=== PATIENT | male | born 1950 | race Caucasian/White ===

== ENCOUNTER 2019-01-15 07:17 | Emergency (ER) | payer MEDICARE, OTHER ==
[~2019-01-15] VITALS: Ht 180.3 cm; Wt 82.6 kg
[2019-01-15 07:25] VITALS: BP 163/65
[2019-01-15] MEDS ORDERED: fentaNYL PF VIAL 100 MCG/2 ML VIAL IV ONE (08:00)
[2019-01-15] MEDS ORDERED: ONDANSETRON PF 4 MG/2 ML VIAL. IV ONE (08:00)
--- NOTE | 2019-01-15 08:33 | PHYS DOC ---
Past Medical History Past Medical History: High Cholesterol Past Surgical History: Other Additional Past Surgical Histo: L4-L5,L5-S1 surgery,bilat knee scope Alcohol Use: Occasionally Drug Use: None Adult General Chief Complaint Chief Complaint: LOWER BACK PAIN OR INJURY [facility] HPI Patient is a 68 year old male who presents with complaining of right hip pain. Patient tearing of sudden onset of right hip pain since 2200 last night as a constant pain that gradually getting worse. Patient complaining of increasing of the pain with walking and bearing weight. Patient denies focal neuro deficit, in jury, fever and chills, urinary and bowel incontinence, abdominal pain, history of the same pain. Patient rated his pain 10 over 10 and states he took Tylenol without improvement of his pain. Review of Systems Review of Systems Constitutional: Denies fever or chills [] Eyes: Denies change in visual acuity, redness, or eye pain [] HENT: Denies nasal congestion or sore throat [] Respiratory: Denies cough or shortness of breath [] Cardiovascular: No additional information not addressed in HPI [] GI: Denies abdominal pain, nausea, vomiting, bloody stools or diarrhea [] : Denies dysuria or hematuria [] Musculoskeletal: Denies back pain, reports joint pain [] Integument: Denies rash or skin lesions [] Neurologic: Denies headache, focal weakness or sensory changes [] Endocrine: Denies polyuria or polydipsia [] All other systems were reviewed and found to be within normal limits, except as documented in this note. Current Medications Current Medications Current Medications Medications (Trade) Dose Ordered Sig/Ismael Start Time Stop Time Status Last Admin Dose Admin Fentanyl Citrate (Fentanyl 2ml Vial) 50 mcg 1X ONCE 01/15/19 08:00 01/15/19 08:01 DC 01/15/19 08:31 50 MCG Ondansetron HCl (Zofran) 4 mg 1X ONCE 01/15/19 08:00 01/15/19 08:01 DC 01/15/19 08:31 4 MG Allergies Allergies Allergies Coded Allergies Type Severity Reaction Last Updated Verified No Known Drug Allergies 01/15/19 No Physical Exam Physical Exam Constitutional: Well developed, well nourished, mild distress, non-toxic appearance. [] HENT: Normocephalic, atraumatic. Eyes: PERRLA, EOMI, conjunctiva normal, no discharge. [] Neck: Normal range of motion, no tenderness, supple, no stridor. [] Cardiovascular:Heart rate regular rhythm, no murmur [] Lungs & Thorax: Bilateral breath sounds clear to auscultation [] Abdomen: Bowel sounds normal, soft, no tenderness, no masses, no pulsatile masses. [] Skin: Warm, dry, no erythema, no rash. [] Back: No tenderness, no CVA tenderness. [] Extremities: Right hip without deformity or sign of injury, painful range of motion without neurovascular deficit. Neurologic: Alert and oriented X 3, no focal deficits noted. [] Psychologic: Affect normal, judgement normal, mood normal. [] Current Patient Data Vital Signs Vital Signs Date Time Temp Pulse Resp B/P (MAP) Pulse Ox O2 Delivery O2 Flow Rate FiO2 01/15/19 08:31 20 95 Room Air 01/15/19 07:25 97.6 81 163/65 (97) 97.6 Lab Values Laboratory Tests Test 01/15/19 08:10 White Blood Count 6.7 x10^3/uL (4.0-11.0) Red Blood Count 5.01 x10^6/uL (4.30-5.70) Hemoglobin 15.6 g/dL (13.0-17.5) Hematocrit 44.8 % (39.0-53.0) Mean Corpuscular Volume 89 fL (79-100) Mean Corpuscular Hemoglobin 31 pg (25-35) Mean Corpuscular Hemoglobin Concent 35 g/dL (31-37) Red Cell Distribution Width 14.0 % (11.5-14.5) Platelet Count 137 x10^3/uL (140-400) L Neutrophils (%) (Auto) 71 % (31-73) Lymphocytes (%) (Auto) 18 % (24-48) L Monocytes (%) (Auto) 8 % (0-9) Eosinophils (%) (Auto) 2 % (0-3) Basophils (%) (Auto) 1 % (0-3) Neutrophils # (Auto) 4.8 x10^3/uL (1.8-7.7) Lymphocytes # (Auto) 1.2 x10^3/uL (1.0-4.8) Monocytes # (Auto) 0.5 x10^3/uL (0.0-1.1) Eosinophils # (Auto) 0.2 x10^3/uL (0.0-0.7) Basophils # (Auto) 0.1 x10^3/uL (0.0-0.2) Sodium Level 143 mmol/L (136-145) Potassium Level 4.3 mmol/L (3.5-5.1) Chloride Level 108 mmol/L (98-107) H Carbon Dioxide Level 28 mmol/L (21-32) Anion Gap 7 (6-14) Blood Urea Nitrogen 17 mg/dL (8-26) Creatinine 1.2 mg/dL (0.7-1.3) Estimated GFR (Cockcroft-Gault) 60.6 BUN/Creatinine Ratio 14 (6-20) Glucose Level 102 mg/dL (70-99) H Calcium Level 8.6 mg/dL (8.5-10.1) Total Bilirubin 0.4 mg/dL (0.2-1.0) Aspartate Amino Transferase (AST) 13 U/L (15-37) L Alanine Aminotransferase (ALT) 21 U/L (16-63) Alkaline Phosphatase 74 U/L (46-116) Total Protein 7.1 g/dL (6.4-8.2) Albumin 4.0 g/dL (3.4-5.0) Albumin/Globulin Ratio 1.3 (1.0-1.7) Laboratory Tests 01/15/19 08:10 Laboratory Tests 01/15/19 08:10 EKG EKG [] Radiology/Procedures Radiology/Procedures [][facility] [address] [place], [place] [id number] IMAGING REPORT Signed PATIENT: MARNI BERGMAN ACCOUNT: [id number] : 1950 LOCATION: ER AGE: 68 SEX: M EXAM STATUS: REG ER ORD. PHYSICIAN: CALLIE REILLY MD REASON: right posterior hip pain PROCEDURE: CT LUMBAR SPINE WO CONTRAST CT PELVIS WO CONTRAST, CT LUMBAR SPINE WO CONTRAST Indication: Right posterior hip pain. Exposure: One or more of the following individualized dose reduction techniques were utilized for this examination: 1. Automated exposure control 2. Adjustment of the mA and/or kV according to patient size 3. Use of iterative reconstruction technique. Technique: Standard imaging without intravenous contrast. Comparison: None Lumbar spine: Vertebral body height is maintained. Degenerative spondylosis, most advanced at the lumbosacral junction where there is vacuum. Minimal retrolisthesis of L4 on L5. No evidence of acute fracture or aggressive bone destruction. Facet joint and ligamentum flavum hypertrophy, greatest at L3-L4 and L4-L5. The above findings result in [id number]-[id number] stenosis at the L3-L4 level and mild at the L4-L5 level. Partially visualized aorta is ectatic no cyst. No significant soft tissue abnormality. IMPRESSION: Degenerative lumbar spondylosis with [id number] lumbar stenosis at L3-L4 and L4-L5. Skeletal pelvis: No evidence of acute fracture. No aggressive bone destruction. Joint spaces demonstrate no dislocation. There are at least mild degenerative changes at both hips. Suboptimal soft tissue evaluation due to noncontrast technique, no obvious acute findings in the soft tissues. IMPRESSION: Primary osteoarthritis about both hips. No definite acute abnormality. If there is persistent right hip pain, consider follow-up with outpatient MRI of the hip. Electronically signed by: Jose Rice MD (01/15/2019 9:21 AM) [facility] DICTATED and SIGNED BY: JOSE RICE MD DATE: 01/15/19920 Course & Med Decision Making Course & Med Decision Making Pertinent Labs and Imaging studies reviewed. (See chart for details) [] Dragon Disclaimer Dragon Disclaimer This electronic medical record was generated, in whole or in part, using a voice recognition dictation system. Departure Departure Impression: Primary Impression: Degenerative joint disease of right hip Additional Impression: Arthralgia Disposition: 01 HOME, SELF-CARE (at 0 [phone]) Condition: IMPROVED Referrals: WILLEM ZHENG MD Patient Instructions: Arthralgia, Hip Pain Additional Instructions: Apply ice on the affected area Follow-up with your primary care physician in 3-5 days Return to ER if not getting better Scripts Hydrocodone/Apap 5-325 (NORCO 5-325 TABLET) 1 Each Tablet 1 TAB PO PRN Q6HRS PRN for PAIN, #14 TAB 0 Refills Prov: CALLIE REILLY MD 01/15/19 Ibuprofen (IBUPROFEN) 800 Mg Tablet 800 MG PO PRN Q8HRS PRN for INFLAMMATION, #20 TAB Prov: CALLIE REILLY MD 01/15/19 Problem Qualifiers Primary Impression: Degenerative joint disease of right hip Osteoarthritis type: unspecified Qualified Codes: M16.11 - Unilateral primary osteoarthritis, right hip Additional Impression: Arthralgia Joint pain location: hip Laterality: right Qualified Codes: M25.551 - Pain in right hip CALLIE REILLY MD Jan 15, 2019 08:33
[2019-01-15 08:40] LABS: BASO # 0.1 x10^3/uL (0.0-0.2); BASO % 1 % (0-3); EOS # 0.2 x10^3/uL (0.0-0.7); EOS % 2 % (0-3); HEMATOCRIT 44.8 % (39.0-53.0); HEMOGLOBIN 15.6 g/dL (13.0-17.5); LYMPH # 1.2 x10^3/uL (1.0-4.8); LYMPH % 18 % (24-48); MEAN CORPUSCULAR HEMOGLOBIN 31 pg (25-35); MEAN CORPUSCULAR HGB CONC 35 g/dL (31-37); MEAN CORPUSCULAR VOLUME 89 fL (79-100); MONO # 0.5 x10^3/uL (0.0-1.1); MONO % 8 % (0-9); NEUT # 4.8 x10^3/uL (1.8-7.7); NEUT % 71 % (31-73); PLATELET COUNT 137 x10^3/uL (140-400); RED BLOOD COUNT 5.01 x10^6/uL (4.30-5.70); WHITE BLOOD COUNT 6.7 x10^3/uL (4.0-11.0)
[2019-01-15 08:44] LABS: CALCIUM 8.6 mg/dL (8.5-10.1); CREATININE 1.2 mg/dL (0.7-1.3); GFR 60.6; POTASSIUM 4.3 mmol/L (3.5-5.1)
[2019-01-15 08:50] LABS: TOTAL PROTEIN 7.1 g/dL (6.4-8.2)
[2019-01-15 08:51] LABS: ALBUMIN/GLOBULIN RATIO 1.3 (1.0-1.7); TOTAL BILIRUBIN 0.4 mg/dL (0.2-1.0)
--- NOTE | 2019-01-15 09:24 | RAD ---
CT PELVIS WO CONTRAST, CT LUMBAR SPINE WO CONTRAST Indication: Right posterior hip pain. Exposure: One or more of the following individualized dose reduction techniques were utilized for this examination: 1. Automated exposure control 2. Adjustment of the mA and/or kV according to patient size 3. Use of iterative reconstruction technique. Technique: Standard imaging without intravenous contrast. Comparison: None Lumbar spine: Vertebral body height is maintained. Degenerative spondylosis, most advanced at the lumbosacral junction where there is vacuum. Minimal retrolisthesis of L4 on L5. No evidence of acute fracture or aggressive bone destruction. Facet joint and ligamentum flavum hypertrophy, greatest at L3-L4 and L4-L5. The above findings result in [id number]-[id number] stenosis at the L3-L4 level and mild at the L4-L5 level. Partially visualized aorta is ectatic no cyst. No significant soft tissue abnormality. IMPRESSION: Degenerative lumbar spondylosis with [id number]-[id number] lumbar stenosis at L3-L4 and L4-L5. Skeletal pelvis: No evidence of acute fracture. No aggressive bone destruction. Joint spaces demonstrate no dislocation. There are at least mild degenerative changes at both hips. Suboptimal soft tissue evaluation due to noncontrast technique, no obvious acute findings in the soft tissues. IMPRESSION: Primary osteoarthritis about both hips. No definite acute abnormality. If there is persistent right hip pain, consider follow-up with outpatient MRI of the hip. Electronically signed by: Jose Rice MD (01/15/2019 9:21 AM) [facility]
--- NOTE | 2019-01-15 09:24 | RAD ---
CT PELVIS WO CONTRAST, CT LUMBAR SPINE WO CONTRAST Indication: Right posterior hip pain. Exposure: One or more of the following individualized dose reduction techniques were utilized for this examination: 1. Automated exposure control 2. Adjustment of the mA and/or kV according to patient size 3. Use of iterative reconstruction technique. Technique: Standard imaging without intravenous contrast. Comparison: None Lumbar spine: Vertebral body height is maintained. Degenerative spondylosis, most advanced at the lumbosacral junction where there is vacuum. Minimal retrolisthesis of L4 on L5. No evidence of acute fracture or aggressive bone destruction. Facet joint and ligamentum flavum hypertrophy, greatest at L3-L4 and L4-L5. The above findings result in bwmh-xi-jejigpdr stenosis at the L3-L4 level and mild at the L4-L5 level. Partially visualized aorta is ectatic no cyst. No significant soft tissue abnormality. IMPRESSION: Degenerative lumbar spondylosis with hzns-cx-qfkhcnal lumbar stenosis at L3-L4 and L4-L5. Skeletal pelvis: No evidence of acute fracture. No aggressive bone destruction. Joint spaces demonstrate no dislocation. There are at least mild degenerative changes at both hips. Suboptimal soft tissue evaluation due to noncontrast technique, no obvious acute findings in the soft tissues. IMPRESSION: Primary osteoarthritis about both hips. No definite acute abnormality. If there is persistent right hip pain, consider follow-up with outpatient MRI of the hip. Electronically signed by: Jose Rice MD (01/15/2019 9:21 AM) [facility]
[2019-01-15] MEDS ORDERED: IBUP-1060 PO (09:46)
[2019-01-15] MEDS ORDERED: HYDR-3164 PO (09:46)
[2019-01-15 10:18] LABS: BILIRUBIN,URINE NEGATIVE (NEG); CLARITY,URINE CLEAR; COLOR,URINE YELLOW; NITRITE,URINE NEGATIVE (NEG); PH,URINE 5.5; PROTEIN,URINE NEGATIVE (NEG-TRACE); UROBILINOGEN,URINE 0.2 mg/dL (0.2 mg/dL)
[2019-01-15 11:02] LABS: BACTERIA,URINE 0 /HPF (0-FEW); RBC,URINE 0 /HPF (0-2); SQUAMOUS EPITHELIAL CELL,UR FEW /LPF; WBC,URINE OCC /HPF (0-4)
== END 2019-01-15 10:29 | disposition home or self-care (01) ==
LOC: ER 07:17
DX: M16.11 Unilateral primary osteoarthritis, right hip (principal); M47.816 Spondylosis without myelopathy or radiculopathy, lumbar region; E78.00 Pure hypercholesterolemia, unspecified; Z98.890 Other specified postprocedural states
CPT/HCPCS: 36415; 72131; 72192; 80053; 81001; 85025; 96374; 96375; 99285; J2405; J3010